=== PATIENT | female | born 2000 | race Caucasian/White ===

== ENCOUNTER 2019-03-12 10:57 | Emergency (ER) | payer BC ==
[2019-03-12 12:59] VITALS: BP 110/76
--- NOTE | 2019-03-12 13:42 | UC ---
Throat Pain/Nasal Calvin HPI - HPI Summary HPI Summary: 18-year-old female presents with complaints of 2 week history of sore throat and fatigue. States 6 weeks ago her sister was diagnosed with mono and that she had a potential exposure. 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 Denies fever, chills, ear pain, nasal congestion, dysphagia, cough, abdominal pain, nausea, or vomiting. - History of Current Complaint Chief Complaint: UCRespiratory Stated Complaint: SORE THROAT RUN DOWN Time Seen by Provider: 03/12/19 13:05 Hx Obtained From: Patient Hx Last Menstrual Period: 03/03/19 Pain Intensity: 8 - Allergies/Home Medications Allergies/Adverse Reactions: Allergies Allergy/AdvReac Type Severity Reaction Status Date / Time walnut Allergy Unknown throat Verified 03/12/19 12:50 itches Home Medications: Home Medications Ferrous Gluconate [Iron 27] 240 mg PO EVERY OTHER DAY 03/12/19 [History Confirmed 03/12/19] Norethindrone-E.estradiol-Iron [Blisovi 24 Fe 1-20 mg-Mcg(24)] 1 tab PO DAILY [History Confirmed 03/12/19] PMH/Surg Hx/FS Hx/Imm Hx Previously Healthy: Yes - Denies significant PMH - Surgical History Surgical History: Yes Surgery Procedure, Year, and Place: T&A. - Family History Known Family History: Positive: Non-Contributory - Social History Occupation: Student Lives: Dormitory/Roommates Alcohol Use: Occasionally Substance Use Type: None Smoking Status (MU): Never Smoked Tobacco Review of Systems All Other Systems Reviewed And Are Negative: Yes Constitutional: Negative: Fever, Chills Skin: Negative: Rash Eyes: Negative: Drainage, Eye Redness ENT: Positive: Sore Throat. Negative: Ear Ache, Nasal Discharge, Sinus Congestion, Sinus Pain/Tenderness Respiratory: Negative: Shortness Of Breath, Cough Cardiovascular: Positive: Negative Gastrointestinal: Negative: Abdominal Pain, Vomiting, Nausea Genitourinary: Positive: Negative Musculoskeletal: Positive: Negative Neurological: Positive: Negative Is Patient Immunocompromised?: No Physical Exam - Summary Physical Exam Summary: GENERAL APPEARANCE: Well developed, well nourished, alert and cooperative, and appears to be in no acute distress. EYES: Conjunctiva clear. No drainage. EARS: External auditory canals and tympanic membranes clear, hearing grossly intact. NOSE: No nasal discharge. THROAT: Pharyngeal erythema. Tonsils surgically absent. NECK: Neck supple, non-tender without lymphadenopathy. CARDIAC: Normal S1 and S2. No S3, S4 or murmurs. Rhythm is regular. There is no peripheral edema, cyanosis or pallor. Extremities are warm and well perfused. Capillary refill is less than 2 seconds. Peripheral pulses intact. LUNGS: Clear to auscultation without rales, rhonchi, wheezing or diminished breath sounds. ABDOMEN: Positive bowel sounds. Soft, nondistended, nontender. No guarding or rebound. No masses or hepatosplenomegally. MUSKULOSKELETAL: ROM intact to all extremities. No joint erythema or tenderness. Normal muscular development. Normal gait. SKIN: Skin normal color, texture and turgor with no lesions or eruptions. Triage Information Reviewed: Yes Vital Signs: Initial Vital Signs Temp 98.2 F 03/12/19 12:52 Pulse 71 03/12/19 12:52 Resp 16 03/12/19 12:52 BP 110/76 03/12/19 12:52 Pulse Ox 100 03/12/19 12:52 Vital Signs Reviewed: Yes Throat Pain/Nasal Course/Dx - Course Course Of Treatment: 18-year-old female presents with complaints of 2 week history of sore throat and fatigue. States 6 weeks ago her sister was diagnosed with mono and that she had a potential exposure. Patient plays Lacrosse at [employer]. Denies fever, chills, ear pain, nasal congestion, dysphagia, cough, abdominal pain, nausea, or vomiting. Afebrile. Vital signs stable. Patient had pharyngeal erythema with surgically absent tonsils, no cervical lymphadenopathy, and otherwise unremarkable exam. Rapid strep test was negative. Reviewed results with the patient and recommended that with her recent exposure to mono that we test her at this time especially since she participates in a contact sport and has potential for a splenic injury. Patient is agreeable to this. I am recommending symptomatic treatment at this time for a viral pharyngitis pending the results of her mono spot. She is to return here or follow up with the [facility] for any problems. Anticipatory guidance and warning symptoms are reviewed with the patient. Verbalizes understanding and agrees with plan of care. - Differential Dx/Diagnosis Differential Diagnosis/HQI/PQRI: Mononucleosis, Peritonsillar Abscess, Pharyngitis, Sinusitis, Tonsillitis Provider Diagnosis: Viral pharyngitis Discharge ED - Sign-Out/Discharge Documenting (check all that apply): Patient Departure All imaging exams completed and their final reports reviewed: No Studies - Discharge Plan Condition: Stable Disposition: HOME Patient Education Materials: Pharyngitis (ED) Referrals: No Primary Care Phys,NOPCP [Primary Care Provider] - Additional Instructions: Your rapid strep test in the clinic today was negative. Your symptoms are likely from a viral infection. With your exposure to mononucleosis this is still a possible cause and we will test you for mono today. It will take a couple days to get these results. I would recommend that you avoid contact sports until we have the results of the testing. If the test is positive for mono you should abstain from contact sports for at least 3 weeks to avoid a possible spleen injury. Drink plenty of fluids to avoid dehydration especially if you are running any fever. Use salt water gargles several times a day. Take over the counter acetaminophen (Tylenol) or ibuprofen (Advil, Motrin) according to directions as needed for pain or fever. You may also use Chloraseptic spray or Cepacol lonzenges according to directions which contain a numbing medication and can provide some temporary relief from your sore throat. Return here or follow up at the [facility] in 7 days for any problems. Seek immediate medical attention in the emergency room if you have fever greater than 100.5 F despite taking acetaminophen or ibuprofen, are unable to swallow or develop drooling, are unable to open your mouth fully, are unable to eat or drink, have pain that is not relieved with over the counter pain medication, or have any difficulty breathing. - Billing Disposition and Condition Condition: STABLE Disposition: Home
[2019-03-14 14:46] LABS: EBV Capsid Ag IgG Ab Positive (Negative); EBV Capsid Ag IgM Ab Negative (Negative); Epstein-Barr Nuclear Antigen Positive (Negative)
--- NOTE | 2019-03-15 07:17 | UC ---
- Progress Note Progress Note: [facility] results come back from March 12, 2019. EBV IgG and EBV AG come back positive. EBV IgM comes back negative. These results suggest past infection of mononucleosis. Patient's Monospot was negative after 2 weeks of symptoms making mononucleosis unlikely. Nursing to call patient inform the patient of the results. If patient continues to have symptoms she should get reevaluated by their primary care physician. Course/Dx - Diagnoses Provider Diagnoses: Viral pharyngitis Discharge ED - Sign-Out/Discharge Documenting (check all that apply): Patient Departure All imaging exams completed and their final reports reviewed: No Studies - Discharge Plan Condition: Stable Disposition: HOME Patient Education Materials: Pharyngitis (ED) Referrals: No Primary Care Phys,NOPCP [Primary Care Provider] - Additional Instructions: Your rapid strep test in the clinic today was negative. Your symptoms are likely from a viral infection. With your exposure to mononucleosis this is still a possible cause and we will test you for mono today. It will take a couple days to get these results. I would recommend that you avoid contact sports until we have the results of the testing. If the test is positive for mono you should abstain from contact sports for at least 3 weeks to avoid a possible spleen injury. Drink plenty of fluids to avoid dehydration especially if you are running any fever. Use salt water gargles several times a day. Take over the counter acetaminophen (Tylenol) or ibuprofen (Advil, Motrin) according to directions as needed for pain or fever. You may also use Chloraseptic spray or Cepacol lonzenges according to directions which contain a numbing medication and can provide some temporary relief from your sore throat. Return here or follow up at the [facility] in 7 days for any problems. Seek immediate medical attention in the emergency room if you have fever greater than 100.5 F despite taking acetaminophen or ibuprofen, are unable to swallow or develop drooling, are unable to open your mouth fully, are unable to eat or drink, have pain that is not relieved with over the counter pain medication, or have any difficulty breathing. - Billing Disposition and Condition Condition: STABLE Disposition: Home
== END 2019-03-12 14:04 | disposition home or self-care (01) ==
LOC: UCCORT 10:57
DX: J02.9 Acute pharyngitis, unspecified (principal); R53.83 Other fatigue; Z91.018 Allergy to other foods
CPT/HCPCS: 36415; 86308; 86664; 86665; 87651; 99201; G0463